=== PATIENT | female | born 1950 | race Caucasian/White ===

== ENCOUNTER → 2018-03-24 12:14 | Outpatient (REF) | payer MEDICARE, SELFPAY ==
[2018-03-24 18:56] LABS: HCT 42.5 % (36.0-46.0); Mean Corp. HGB Concentration 32.9 g/dL (32.0-36.0); Mean Corpuscular Hemoglobin 31.3 pg (27.0-33.0); Mean Corpuscular Volume 95.1 fL (80-95); Mean Platelet Volume 9.9 fL (8.0-11.0); Platelet Count 208 x1000/uL (130-400); RBC 4.47 m/cumm (4.00-5.20); RBC Distribution Width 12.2 % (11.7-14.6); White Blood Cell Count 4.06 k/cumm (4.4-10.8)
[2018-03-24 19:16] LABS: ALT 79 U/L (12-78); AST 56 U/L (15-37); Albumin 4.1 g/dL (3.4-5.0); Alkaline Phosphatase 91 U/L (46-116); Anion Gap 9.2 mmol/L (3-11); BUN 9 mg/dL (7-18); Bilirubin, Total 0.4 mg/dL (0.2-1.0); CO2 27.8 mmol/L (21.0-32.0); CREATININE 0.76 mg/dL (0.55-1.02); Calcium 8.6 mg/dL (8.5-10.1); Chloride 103 mmol/L (98-107); Glucose 81 mg/dL (70-100); Potassium 4.3 mmol/L (3.5-5.1); Sodium 140 mmol/L (136-145); TSH (W/Ref FT4) 0.94 uIU/mL (0.358-3.74); Total Protein 7.4 g/dL (6.4-8.2)
[2018-03-26 21:29] LABS: Iron 107 ug/dL (50-175); Total Iron Binding Capacity 350 ug/dL (250-450); Transferrin Sat 31 % (15-50)
[2018-03-26 21:34] LABS: Ferritin 170 ng/mL (8-388)
[2018-03-28 11:05] LABS: Hep B Core Antibody Negative (NEGAT)
[2018-03-28 11:13] LABS: HBs Antibody, Quant <3.1 mIU/mL; Hepatitis B Surface Ab Negative; Hepatitis B Surface Ag Negative (NEGAT)
== END ==
LOC: NCHCN 12:14
PROVIDERS: PCP Family Medicine; Visit Provider Family Medicine
DX: E03.9 Hypothyroidism, unspecified (principal); K76.0 Fatty (change of) liver, not elsewhere classified; R79.89 Other specified abnormal findings of blood chemistry; M54.5 Low back pain
CPT/HCPCS: 80053; 85027; 86704; 86706; 87340; 82728; 83540; 83550; 84443

== ENCOUNTER 2018-04-23 01:08 | Outpatient (CLI) | payer MEDICARE, SELFPAY ==
--- NOTE | 2018-04-23 07:36 | DI.US_ITS ---
SYMPTOMS/DIAGNOSIS: ELEVATED LFTS, R79.89 ABDOMINAL ULTRASOUND: Routine examination was performed. The aorta and IVC are unremarkable. There is diffuse increased echogenicity of the liver consistent with fatty infiltration. There is normal portal vein flow. No hepatic mass is seen. The gallbladder is negative sonographically. No stones, sludge or gallbladder wall thickening is seen. There is a negative sonographic Kaiser's sign. The common duct is within normal limits at .3 cm. The pancreas, kidneys and spleen are unremarkable. IMPRESSION: Hepatic steatosis. Otherwise negative examination.
== END 2018-04-23 01:28 ==
PROVIDERS: PCP Family Medicine; Visit Provider Family Medicine
DX: R79.89 Other specified abnormal findings of blood chemistry (principal); K76.0 Fatty (change of) liver, not elsewhere classified
CPT/HCPCS: 76700

== ENCOUNTER 2019-03-25 16:03 | Outpatient (REF) | payer MEDICARE, SELFPAY ==
[2019-03-25 19:35] LABS: HCT 44.3 % (36.0-46.0); HGB 14.5 g/dL (12.0-15.5); Mean Corp. HGB Concentration 32.7 g/dL (32.0-36.0); Mean Corpuscular Hemoglobin 30.2 pg (27.0-33.0); Mean Corpuscular Volume 92.3 fL (80-95); Mean Platelet Volume 9.8 fL (8.0-11.0); Platelet Count 218 x1000/uL (130-400); RBC Distribution Width 12.9 % (11.7-14.6); White Blood Cell Count 3.87 k/cumm (4.4-10.8)
[2019-03-25 20:28] LABS: ALT 85 U/L (12-78); AST 61 U/L (15-37); Albumin 3.9 g/dL (3.4-5.0); Alkaline Phosphatase 106 U/L (46-116); Anion Gap 9.1 mmol/L (3-11); BUN 8 mg/dL (7-18); Bilirubin, Total 0.3 mg/dL (0.2-1.0); CO2 28.9 mmol/L (21.0-32.0); CREATININE 0.67 mg/dL (0.55-1.02); Calcium 8.8 mg/dL (8.5-10.1); Chloride 105 mmol/L (98-107); Glucose 95 mg/dL (70-100); Sodium 143 mmol/L (136-145); TSH (W/Ref FT4) 0.42 uIU/mL (0.36-3.74); Total Protein 7.5 g/dL (6.4-8.2)
== END 2019-03-25 16:23 ==
LOC: NCHCN 16:03
PROVIDERS: PCP Family Medicine; Visit Provider Family Medicine
DX: E03.9 Hypothyroidism, unspecified (principal); R60.0 Localized edema
CPT/HCPCS: 80053; 85027; 84443

== ENCOUNTER 2019-03-31 01:39 | Outpatient (CLI) | payer MEDICARE, SELFPAY ==
--- NOTE | 2019-03-31 10:30 | MERGE_ITS ---
*[facility]* *[facility]* [address] [place] [address] Date of study: 03/31/2019 Transthoracic Echocardiography M-mode, complete 2D, complete spectral Doppler, and color Doppler *STUDY CONCLUSIONS* Summary: 1. Left ventricle: The cavity size was normal. Wall thickness was normal. Systolic function was normal. The estimated ejection fraction was 60-65%. Wall motion was normal; there were no regional wall motion abnormalities. Some parameters suggest diastolic dysfunction. 2. Aortic valve: Trileaflet; normal thickness leaflets. There was mild to moderate regurgitation. 3. Right ventricle: The cavity size was normal. Wall thickness was normal. Systolic function was normal. 4. Pulmonary arteries: Pulmonary systolic pressure was within the normal range, in the range of 30mm Hg to 35mm Hg. *PATIENT PRESENTATION* Height: 157.5cm (62in ) S/D Pressure: 116 / 66 Weight: 94.3kg (207.6lb ) BSA: 2.08m^2 Test start time: 10:45 AM. Test stop time: 11:30 AM. CONSULTING Lisa Figueredo ORDERING Lisa Figueredo REFERRING Lisa Figueredo PERFORMING Unknown PERFORMING [facility] RUG LAYER RT Kia Tan)(MARQUITA)MATTHEW *PROCEDURE DATA* Procedure information: This study was interpreted by [facility]. Pertinent images and digital data are archived for permanent storage and are available for subsequent review. No prior study was available for comparison. Study status: Routine. Transthoracic echocardiography. M-mode, complete 2D, complete spectral Doppler, and color Doppler. A Transthoracic Echocardiogram was performed. Scanning was performed from the parasternal, apical, subcostal, and suprasternal notch acoustic windows. Images were obtained using an [id number] cardiac ultrasound machine. Image quality was adequate. Study completion: The patient tolerated the procedure well. There were no complications. History: PMH: Leg edema r60.0 DAVILA, no orthopnea. New onset. *CARDIAC ANATOMY* Left ventricle: The cavity size was normal. Wall thickness was normal. Systolic function was normal. The estimated ejection fraction was 60-65%. Wall motion was normal; there were no regional wall motion abnormalities. Some parameters suggest diastolic dysfunction. Aortic valve: Trileaflet; normal thickness leaflets. Mobility was not restricted. Doppler: Transvalvular velocity was within the normal range. There was no stenosis. There was mild to moderate regurgitation. VTI ratio of LVOT to aortic valve: 0.76. Valve area (VTI): 2.1cm^2. Indexed valve area (VTI): 1cm^2/m^2. Peak velocity ratio of LVOT to aortic valve: 0.86. Valve area (Vmax): 2.4cm^2. Indexed valve area (Vmax): 1.2cm^2/m^2. Mean velocity ratio of LVOT to aortic valve: 0.73. Valve area (Vmean): 2cm^2. Indexed valve area (Vmean): 1cm^2/m^2. Mean gradient (S): 5.7mm Hg. Peak gradient (S): 11.5mm Hg. Aorta: Aortic root: The aortic root was normal in size. Mitral valve: Structurally normal valve. Mobility was not restricted. Doppler: Transvalvular velocity was within the normal range. There was no evidence for stenosis. There was trivial regurgitation. Valve area by pressure half-time: 2.9cm^2. Indexed valve area by pressure half-time: 1.4cm^2/m^2. Left atrium: The atrium was normal in size. Right ventricle: The cavity size was normal. Wall thickness was normal. Systolic function was normal. Pulmonic valve: Doppler: Transvalvular velocity was within the normal range. There was no evidence for stenosis. There was no significant regurgitation. Peak gradient (S): 3.1mm Hg. Tricuspid valve: Structurally normal valve. Doppler: Transvalvular velocity was within the normal range. There was no evidence for stenosis. There was mild regurgitation. Pulmonary artery: Pulmonary systolic pressure was within the normal range, in the range of 30mm Hg to 35mm Hg. Right atrium: The atrium was normal in size. Pericardium: There was no pericardial effusion. Systemic veins: Inferior vena cava: Well visualized. The vessel was patent and normal in size. The respirophasic diameter changes were in the normal range (greater than or equal to 50%). Baseline ECG: Normal sinus rhythm. Measurements Left ventricle Value Reference LV ID, ED, PLAX 4.1 cm 3.5 - 6.0 LV ID, ES, PLAX 2.7 cm 2.1 - 4.0 LV PW thickness, ED, PLAX 1.0 cm LV end-diastolic volume, 1-p A2C 66 ml LV ejection fraction, 1-p A2C 53 % LV end-diastolic volume, 1-p A4C 79 ml LV ejection fraction, 1-p A4C 67 % LV e', lateral 0.088 m/sec LV E/e', lateral 5 LV e', medial 0.068 m/sec LV E/e', medial 7 LV e', average 0.078 m/sec LV E/e', average 6 Ventricular septum Value Reference IVS thickness, ED, PLAX 1.0 cm LVOT Value Reference LVOT ID, A-P 1.9 cm LVOT area 2.8 cm^2 LVOT peak velocity, S 1.45 m/sec LVOT mean velocity, S 0.83 m/sec LVOT VTI, S 28.9 cm LVOT peak gradient, S 8.4 mm Hg LVOT mean gradient, S 3.5 mm Hg Stroke volume (SV), LVOT DP 81 ml Stroke index (SV/bsa), LVOT DP 39 ml/m^2 Aortic valve Value Reference Aortic valve peak velocity, S 1.7 m/sec Aortic valve mean velocity, S 1.1 m/sec Aortic valve VTI, S 38.0 cm Aortic mean gradient, S 5.7 mm Hg Aortic peak gradient, S 11.5 mm Hg VTI ratio, LVOT/AV 0.76 Aortic valve area, VTI 2.1 cm^2 Velocity ratio, peak, LVOT/AV 0.86 Aortic valve area, peak velocity 2.4 cm^2 Velocity ratio, mean, LVOT/AV 0.73 Aortic valve area, mean velocity 2 cm^2 Aortic valve area/bsa, mean velocity 1 cm^2/m^2 Aortic regurg deceleration 427 cm/s^2 Aortic regurg pressure half-time 313 ms Aorta Value Reference Aortic root ID, ED 2.8 cm Ascending aorta ID, A-P, S 3.5 cm Left atrium Value Reference LA ID, A-P, ES 3.8 cm LA ID/bsa, A-P 1.8 cm/m^2 <=2.2 LA volume/bsa, ES, 1-p A4C 41 ml/m^2 LA volume, ES, 2-p 64 ml LA volume/bsa, ES, 2-p 31 ml/m^2 LA/aortic root ratio 1.34 Mitral valve Value Reference Mitral E-wave peak velocity 0.48 m/sec Mitral A-wave peak velocity 0.87 m/sec Mitral deceleration time (H) 258 ms 150 - 230 Mitral pressure half-time 75 ms Mitral E/A ratio, peak 0.55 Mitral valve area, PHT, DP 2.9 cm^2 Tricuspid valve Value Reference Tricuspid regurg peak velocity 2.5 m/sec Tricuspid peak RV-RA gradient 25.4 mm Hg Right atrium Value Reference RA area, ES, A4C 13.9 cm^2 8.3 - 19.5 Pulmonic valve Value Reference Pulmonic peak gradient, S 3.1 mm Hg Legend: (L) and (H) edmundo values outside specified reference range. I have personally reviewed the images and have reviewed and edited the reported findings. Electronically signed by Cornel Reynolds 03/31/2019 12:17
== END 2019-03-31 01:59 ==
PROVIDERS: PCP Family Medicine; Visit Provider Family Medicine
DX: R06.09 Other forms of dyspnea (principal); R60.0 Localized edema; I35.1 Nonrheumatic aortic (valve) insufficiency
CPT/HCPCS: 93306

== ENCOUNTER 2019-04-17 20:45 | Outpatient (REF) | payer MEDICARE, SELFPAY ==
[2019-04-17 19:02] LABS: Anion Gap 10.5 mmol/L (3-11); BUN 10 mg/dL (7-18); CO2 26.5 mmol/L (21.0-32.0); CREATININE 0.63 mg/dL (0.55-1.02); Calcium 8.6 mg/dL (8.5-10.1); Chloride 105 mmol/L (98-107); Glucose 82 mg/dL (70-100); Sodium 142 mmol/L (136-145)
== END 2019-04-17 21:05 ==
LOC: NCHCN 20:45
PROVIDERS: PCP Family Medicine; Visit Provider Family Medicine
DX: R60.0 Localized edema (principal)
CPT/HCPCS: 80048

== ENCOUNTER 2019-05-19 00:46 | Outpatient (CLI) | payer MEDICARE, SELFPAY ==
--- NOTE | 2019-05-19 15:59 | DI.DEXA_ITS ---
EXAM: XR DEXA BONE DENSITY W/WO MANUEL INDICATION: POSTMENOPAUSAL Z78.0. COMPARISON: LUMBAR SPINE COMPLETE from 12/13/2014 TECHNIQUE: 2D digital imaging was performed. FINDINGS: The lateral spine film shows no evidence of compression deformity. Evaluation of the left hip shows a total T-score of -1.7 and a Z-score of -0.4. This is consistent w ith osteopenia and increased fracture risk. Evaluation of the lumbar spine shows a total T-score of -2.6 and a Z-score of -0.7. This is consiste nt with osteoporosis and high fracture risk. IMPRESSION: Osteoporosis in the lumbar spine.
--- NOTE | 2019-05-19 16:39 | DI.MAMMO_ITS ---
EXAM: MG MAMMO SCREENING CLINICAL HISTORY: SCREENING Z12.31. TECHNIQUE: Bilateral full field digital CC and MLO mammographic images were obtained with 3D tomosyn thesis and utilizing computer aided detection (CAD). COMPARISON: There are multiple priors with the most recent from 01/21/2017. FINDINGS: Masses/Architectural Distortion: None seen. Microcalcifications: No suspicious pleomorphic-type are seen. IMPRESSION: 1. No significant interval change with no specific features of malignancy noted. 2. Unless there is more urgent need, screening mammography is recommended, as per [employer] guidelines. ACR BI-RAD Category- 1 Negative Breast Density - Category B - Scattered areas of fibroglandular density A negative radiographic report should not delay biopsy if a dominant or clinically suspicious mass is present. Up to ten percent of cancers are not identified on mammography. A negative report may reinforce clinical impression. Adenosis and dense breasts may obscure an underlying neoplasm. False positive reports average 6 to 10%.
== END 2019-05-19 01:06 ==
PROVIDERS: PCP Family Medicine; Visit Provider Family Medicine
DX: Z12.31 Encounter for screening mammogram for malignant neoplasm of breast (principal); M81.0 Age-related osteoporosis without current pathological fracture; Z78.0 Asymptomatic menopausal state
CPT/HCPCS: 77063; 77067; 77080

== ENCOUNTER 2019-05-22 11:49 | Outpatient (CLI) | payer MEDICARE, SELFPAY ==
[2019-05-22 13:11] LABS: PHOSPHORUS 3.5 mg/dL (2.6-4.7)
[2019-05-25 07:33] LABS: Vitamin D 25 Total 15.4 ng/ml (30-100)
[2019-05-25 10:34] LABS: Parathyroid Hormone,Intact 87 pg/ml (19-88)
[2019-05-26 12:37] LABS: IgA 328 mg/dL (85-499)
[2019-05-26 17:43] LABS: Tissue Transglutaminase Ab IgA <1.2 U/mL
== END 2019-05-22 12:09 ==
PROVIDERS: PCP Family Medicine; Visit Provider Family Medicine
DX: M81.0 Age-related osteoporosis without current pathological fracture (principal); E55.9 Vitamin D deficiency, unspecified
CPT/HCPCS: 36415; 82306; 82784; 83516; 83970; 84100

== ENCOUNTER 2019-08-27 08:18 | Outpatient (CLI) | payer MEDICARE, SELFPAY ==
[2019-08-27 09:13] LABS: Abs Immature Grans 0.01 k/cumm (0.0-0.09); Absolute Basophil Count 0.03 k/cumm (0.0-0.2); Absolute Eosinophil Count 0.13 k/cumm (0.0-0.7); Absolute Lymphocyte Count 1.47 k/cumm (1.2-3.4); Absolute Monocyte Count 0.27 k/cumm (0.11-0.7); Absolute Neutrophil Count 1.61 k/cumm (1.2-6.7); Basophils % 0.9; Eosinophils % 3.7; HCT 43.3 % (36.0-46.0); HGB 13.8 g/dL (12.0-15.5); Immature Grans % 0.3 %; Lymphocytes % 41.8; Mean Corp. HGB Concentration 31.9 g/dL (32.0-36.0); Mean Corpuscular Hemoglobin 29.8 pg (27.0-33.0); Mean Corpuscular Volume 93.5 fL (80-95); Monocytes % 7.7; Neutrophils % 45.6; Platelet Count 206 x1000/uL (130-400); RBC 4.63 m/cumm (4.00-5.20); RBC Distribution Width 12.7 % (11.7-14.6); White Blood Cell Count 3.52 k/cumm (4.4-10.8)
[2019-08-27 09:18] LABS: ALT 44 U/L (14-59); AST 29 U/L (15-37); Albumin 3.6 g/dL (3.4-5.0); Alkaline Phosphatase 103 U/L (46-116); Anion Gap 8.3 mmol/L (3-11); BUN 11 mg/dL (7-18); Bilirubin, Total 0.3 mg/dL (0.2-1.0); CO2 30.7 mmol/L (21.0-32.0); CREATININE 0.61 mg/dL (0.55-1.02); Calcium 9.1 mg/dL (8.5-10.1); Chloride 104 mmol/L (98-107); Glucose 87 mg/dL (74-106); Sodium 143 mmol/L (136-145); TSH (W/Ref FT4) 0.35 uIU/mL (0.36-3.74); Total Protein 7.8 g/dL (6.4-8.2)
[2019-08-27 09:53] LABS: FREE T4 1.31 ng/dL (0.76-1.46)
[2019-08-27 22:43] LABS: Vitamin D 25 Total 74.2 ng/ml (30-100)
== END 2019-08-27 08:38 ==
PROVIDERS: PCP Family Medicine; Visit Provider Family Medicine
DX: E55.9 Vitamin D deficiency, unspecified (principal); E03.9 Hypothyroidism, unspecified
CPT/HCPCS: 36415; 80053; 82306; 84439; 84443; 85025

== ENCOUNTER 2020-02-16 08:25 | Outpatient (REF) | payer MEDICARE, SELFPAY ==
[2020-02-16 10:03] LABS: Anion Gap 7.3 mmol/L (3-11); BUN 11 mg/dL (7-18); CO2 29.7 mmol/L (21.0-32.0); CREATININE 0.71 mg/dL (0.55-1.02); Chloride 103 mmol/L (98-107); Glucose 83 mg/dL (74-106); Potassium 3.7 mmol/L (3.5-5.1); Sodium 140 mmol/L (136-145); TSH (W/Ref FT4) 1.81 uIU/mL (0.36-3.74)
[2020-02-18 04:27] LABS: Vitamin D 25 Total 48.2 ng/ml (30-100)
== END 2020-02-16 08:45 ==
LOC: NCHCN 08:25
PROVIDERS: PCP Family Medicine; Visit Provider Family Medicine
DX: E55.9 Vitamin D deficiency, unspecified (principal); E03.9 Hypothyroidism, unspecified; M81.0 Age-related osteoporosis without current pathological fracture
CPT/HCPCS: 80048; 82306; 84443

== ENCOUNTER 2020-05-20 11:52 | Outpatient (REF) | payer MEDICARE, SELFPAY ==
[2020-05-20 19:25] LABS: Anion Gap 7.2 mmol/L (3-11); BUN 9 mg/dL (7-18); CO2 27.8 mmol/L (21.0-32.0); CREATININE 0.72 mg/dL (0.55-1.02); Calcium 8.9 mg/dL (8.5-10.1); Chloride 103 mmol/L (98-107); Glucose 77 mg/dL (74-106); Sodium 138 mmol/L (136-145)
[2020-05-20 20:23] LABS: Hemoglobin A1C 5.4 % (<5.7)
== END 2020-05-20 12:12 ==
LOC: NCHCN 11:52
PROVIDERS: PCP Family Medicine; Visit Provider Family Medicine
DX: R73.09 Other abnormal glucose (principal); R60.0 Localized edema
CPT/HCPCS: 80048; 83036

== ENCOUNTER 2020-05-26 00:32 | Outpatient (CLI) | payer MEDICARE, SELFPAY ==
--- NOTE | 2020-05-26 | DI.US_ITS ---
APPROVED REPORT EXAM: Comprehensive 2D, Doppler, and color-flow Echocardiogram Patient Location: Out-Patient Organizational Psychologist: Leigh Nayak RDCS (AE) Indications: DAVILA, Leg Edema Other Information Study Quality: Fair Conclusion Left Ventricle : The left ventricle is normal size. The left ventricular systolic function is normal. The left ventricular ejection fraction is within the normal range. There is normal left ventricular wall thickness. There is normal LV segmental wall motion. The left ventricular diastolic function is normal. LVEF is 53%. Right Ventricle : Right ventricle is not well visualized. The right ventricular systolic function is normal. The RVSP is 23.6 mmHg. Atria : The left atrium size is normal. Right atrium is not well visualized. Valves: There are no hemodynamically significant valvular lesions. Great Vessels : The aortic root is normal in size. The ascending aorta is mildly dilated. Aortic arch is not well visualized. IVC is normal in size and collapses >50% with inspiration. Please see remainder of study for further details. Wall motion Left Ventricle The left ventricle is normal size. The left ventricular systolic function is normal. The left ventric ular ejection fraction is within the normal range. There is normal left ventricular wall thickness. T here is normal LV segmental wall motion. The left ventricular diastolic function is normal. There is no ventricular septal defect visualized. LVEF is 53%. Right Ventricle Right ventricle is not well visualized. The right ventricular systolic function is normal. The RVSP i s 23.6 mmHg. Atria The left atrium size is normal. Right atrium is not well visualized. The interatrial septum is intact with no evidence for an atrial septal defect. Aortic Valve The aortic valve is normal in structure. There is no aortic valvular stenosis. Mild aortic regurgitat ion. Mitral Valve The mitral valve is normal in structure. No evidence of mitral valve stenosis. Trace mitral regurgita tion. Tricuspid Valve The tricuspid valve is normal in structure. There is no tricuspid valve stenosis. Trace tricuspid reg urgitation. Pulmonic Valve The pulmonary valve is normal in structure. There is no pulmonic valvular stenosis. Trace pulmonic re gurgitation. Great Vessels The aortic root is normal in size. The ascending aorta is mildly dilated. Aortic arch is not well vis ualized. IVC is normal in size and collapses >50% with inspiration. Pericardium There is no pericardial effusion. 2D Dimensions IVSD d PLAX 0.83 cm F: 0.6-1.0 LV Vol A2C d MOD 69.1 mL LVPW d PLAX 0.80 cm F: 0.6 - 1.0 LV Vol A4C d MOD 70.0 mL LVID d PLAX 4.49 cm F: 3.8 - 5.2 LA vol/ BSA A2C s A-L 23.9 mL/m2 LVDs 3.30 cm F: 2.2 - 3.5 LA vol/ BSA A4C s A-L 12.4 mL/m2 Ao Root d 2.89 cm F: 2.7 - 3.3 LA Vol/ BSA Biplane s A-L 18.3 mL/m2 RA Area A4C 10.08 cm2 LA Area A4C s MOD 10.74 cm2 RA Vol/ BSA A4C s A-L 11.1 mL/m2 LA Area A2C s MOD 15.93 cm2 Ao Asc Diam d 3.40 cm F: 2.3 - 3.1 LV EF A4C MOD 53.3 % LV EF Teichholz 51.0 % LV EF A2C MOD 51.4 % LVEF (Mathias's) 52.08 % F: 54 - 74 LV EF Biplane MOD 52.1 % LV Volume 54.14 mL F: 46 - 106 SV 36.91 mL LV Volume Index 28.64 mL/m2 F: 29 - 61 SV Index 19.48 mL/m2 LV Vol Biplane MOD 70.9 mL FS 25.85 % LV Diastology MV E' medial 0.067 (>0.07 m/s) E/A Ratio 0.8 LV E/e MED 7.75 (<14) MV E Vmax 0.52 (0.4-1.3 m/s) MV E' lateral 0.078 (>0.1 m/s) MV A Vmax 0.65 (0.4-1.3 m/s) LV E/e LAT 6.65 (<14) MV E/A Ratio 0.75 MV E/E' medial 7.75 MV E/E' lateral 6.69 Aortic Valve LVOT Area 2.88 cm2 AoV Area Vmax 2.29 cm2 LVOT Vmax 1.26 m/s AoV Area/ BSA (Vmax) 1.21 cm2/m2 LVOT Mean Patel. 0.79 m/s ADELAIDA Mean Patel. 2.04 cm2 LVOT Peak Grad 6.3 mmHg ADELAIDA Mean Patel. Index 1.07 cm2/m2 LVOT Mean Grad 3.0 mmHg AR DT 2860 msec LVOT VTI 0.289 m AR PHT 829 msec LVOT Diam s 1.90 cm AoV Vmax 1.58 m/s Velocity Ratio 0.79 AoV Mean Patel. 1.12 m/s AoV Peak Grad 10.0 mmHg LVOT SV 83.38 mL AoV Mean Grad 5.6 mmHg AoV VTI 0.297 m AoV Area VTI 2.81 cm2 AoV Area/ BSA (VTI) 1.48 cm/m2 Mitral Valve MV DT 224 (160-240 msec) MV PHT 65 msec MV Area PHT 3.39 cm2 Pulmonary Valve PV Vmax 0.95 (0.5-1.5 m/s) RVOT Peak Gr. 2.49 mmHg PV Peak Grad 3.6 mmHg RVOT Mean Gr. 1.20 mmHg PV Mean Grad 1.8 mmHg RVOT VTI 0.181 m PV VTI 0.198 m RVOT Vmax 0.79 m/s Tricuspid Valve TR Peak Grad 20.5 mmHg TR Vmax 2.27 m/s RA Pressure 3.00 mmHg RVSP (TR) 23.6 mmHg
== END 2020-05-26 00:52 ==
PROVIDERS: PCP Family Medicine; Visit Provider Family Medicine
DX: R06.09 Other forms of dyspnea (principal); I77.810 Thoracic aortic ectasia
CPT/HCPCS: 93306

== ENCOUNTER 2020-12-16 09:44 | Outpatient (REF) | payer MEDICARE, SELFPAY ==
[2020-12-16 15:27] LABS: HCT 42.4 % (36.0-46.0); HGB 13.9 g/dL (11.2-15.7); MCH 30.8 pg (27.0-33.0); MCHC 32.8 % (32.0-36.0); MPV 9.1 fL (8.0-11.0); Platelet Count 219 10^3/uL (130-400); RBC 4.51 10^6/uL (3.93-5.22); RDW 11.9 % (11.7-14.6); RDW-SD 41.4 fL
[2020-12-16 15:51] LABS: Calculated LDL 124 mg/dL (<100); Cholesterol 202 mg/dL (<200); HDL Cholesterol 49 mg/dL (40-60); Triglyceride 145 mg/dL (<150)
== END 2020-12-16 09:45 | disposition home or self-care (01) ==
LOC: NCHCN 09:44
PROVIDERS: PCP Family Medicine; Visit Provider Family Medicine
DX: E78.89 Other lipoprotein metabolism disorders (principal); Z00.00 Encounter for general adult medical examination without abnormal findings; D72.819 Decreased white blood cell count, unspecified
CPT/HCPCS: 80061; 85027

== ENCOUNTER 2021-06-09 11:51 | Outpatient (REF) | payer MEDICARE, SELFPAY ==
[2021-06-09 14:09] LABS: HCT 41.4 % (36.0-46.0); HGB 13.7 g/dL (11.2-15.7); MCH 30.2 pg (27.0-33.0); MCHC 33.1 % (32.0-36.0); MCV 91.2 fL (80-95); MPV 9.3 fL (8.0-11.0); Platelet Count 222 10^3/uL (130-400); RBC 4.54 10^6/uL (3.93-5.22); RDW 12.1 % (11.7-14.6); RDW-SD 40.6 fL; WBC 3.67 10^3/uL (4.4-10.8)
[2021-06-09 14:27] LABS: ALT 40 U/L (14-59); AST 31 U/L (15-37); Albumin 4.1 g/dL (3.4-5.0); Alkaline Phosphatase 66 U/L (46-116); BUN 12 mg/dL (7-18); Bilirubin, Total 0.5 mg/dL (0.2-1.0); CREATININE 0.8 mg/dL (0.55-1.02); Chloride 103 mmol/L (98-107); Glucose 91 mg/dL (74-106); Potassium 4.3 mmol/L (3.5-5.1); Sodium 140 mmol/L (136-145); TSH (W/Ref FT4) 2.01 uIU/mL (0.36-3.74); Total Protein 7.8 g/dL (6.4-8.2)
== END 2021-06-09 11:52 | disposition home or self-care (01) ==
LOC: NCHCN 11:51
PROVIDERS: PCP Family Medicine; Visit Provider Family Medicine
DX: E03.9 Hypothyroidism, unspecified (principal); K76.0 Fatty (change of) liver, not elsewhere classified
CPT/HCPCS: 80053; 85027; 84443

== ENCOUNTER 2021-07-12 01:55 | Outpatient (CLI) | payer MEDICARE, SELFPAY ==
--- NOTE | 2021-07-12 07:30 | DI.MAMMO_ITS ---
Exam(s) MAMMO SCREENING EXAM: MAMMO SCREENING CLINICAL HISTORY: SCREENING MAMMO FOR BREAST CANCER Z12.31 TECHNIQUE: Mammograms were interpreted according to the usual protocol including computer analysis w [facility] CAD system, tomosynthesis and C-view imaging. COMPARISON: FINDINGS: The breasts are of moderate density with fairly symmetrical distribution of fibroglandular tissue. N o dominant mass or clumped microcalcification is identified in either breast. The current examinatio n compared with previous examinations including May 2019 and there has been no gross interval renita nge in appearance in comparison with the prior studies. IMPRESSION: No specific evidence of malignancy at this time. Routine screening examinations are suggested at yea rly intervals due to the family history of breast carcinoma. BI-RADS Category 1 - Negative Breast Density - Category B - Scattered areas of fibroglandular density
== END 2021-07-12 02:15 ==
PROVIDERS: PCP Family Medicine; Visit Provider Family Medicine
DX: Z12.31 Encounter for screening mammogram for malignant neoplasm of breast (principal)
CPT/HCPCS: 77063; 77067

== ENCOUNTER 2022-01-12 09:55 | Outpatient (REF) | payer MEDICARE, SELFPAY ==
--- NOTE | 2022-01-12 09:30 | SKI_PTH ---
PATIENT: Maritza Lemus LOC: N U#:[id number] AGE/SX: 71/F ROOM: RE01/12/[address]: LE Pruitt : 1950 BED: DIS: 01/12/2022 SPEC #: [id number] RECD: 01/12/22 15:47 STATUS: DARCIE REQ #: [id number] KIM: 01/12/22 09:[address]: Primo Guerra DEPT: Surgical Specimen RECD BY: Sanyd Jimenez ENTERED: 01/12/22 15:48 SP TYPE: NUSRAT STEWART DR: Lisa Figueredo Tissues: 1 - SKIN BIOPSY(SHAVE/PUNCH) Procedures: SKIN LEVEL 4 Comments: [id number]
== END 2022-01-12 09:56 | disposition home or self-care (01) ==
LOC: LBN 09:55
PROVIDERS: PCP Family Medicine; Visit Provider Physician Assistant
DX: D22.61 Melanocytic nevi of right upper limb, including shoulder (principal); L81.4 Other melanin hyperpigmentation
CPT/HCPCS: 88305

== ENCOUNTER 2022-07-16 17:30 | Outpatient (REF) | payer MEDICARE, SELFPAY ==
[2022-07-16 18:35] LABS: HCT 42.3 % (36.0-46.0); HGB 14.1 g/dL (11.2-15.7); MCH 30.3 pg (27.0-33.0); MCHC 33.3 % (32.0-36.0); MCV 91 fL (80-95); Platelet Count 222 10^3/uL (130-400); RBC 4.65 10^6/uL (3.93-5.22); RDW 12.4 % (11.7-14.6)
[2022-07-16 19:00] LABS: ALT 60 U/L (14-59); AST 38 U/L (15-37); Albumin 3.9 g/dL (3.4-5.0); Alkaline Phosphatase 64 U/L (46-116); Anion Gap 7.6 mmol/L (3-11); BUN 16 mg/dL (7-18); Bilirubin, Total 0.5 mg/dL (0.2-1.0); CO2 29.4 mmol/L (21.0-32.0); CREATININE 0.9 mg/dL (0.55-1.02); Calcium 9.3 mg/dL (8.5-10.1); Chloride 101 mmol/L (98-107); Estimated GFR 68.77 (mL/min/1.73m2); Glucose 78 mg/dL (74-106); Potassium 3.9 mmol/L (3.5-5.1); Sodium 138 mmol/L (136-145); TSH (W/Ref FT4) 1.71 uIU/mL (0.36-3.74); Total Protein 7.7 g/dL (6.4-8.2)
== END 2022-07-16 17:31 | disposition home or self-care (01) ==
LOC: NCHCN 17:30
PROVIDERS: PCP Family Medicine; Visit Provider Family Medicine
DX: E03.9 Hypothyroidism, unspecified (principal); K76.0 Fatty (change of) liver, not elsewhere classified
CPT/HCPCS: 80053; 85027; 84443

== ENCOUNTER 2022-08-21 14:02 | Outpatient (REF) | payer MEDICARE, SELFPAY ==
[2022-08-21 20:25] LABS: BUN 19 mg/dL (7-18); CREATININE 0.9 mg/dL (0.55-1.02); Calcium 9.6 mg/dL (8.5-10.1); Glucose 90 mg/dL (74-106)
[2022-08-21 20:26] LABS: Anion Gap 7.3 mmol/L (3-11); CO2 29.7 mmol/L (21.0-32.0); Chloride 99 mmol/L (98-107); Estimated GFR 68.77 (mL/min/1.73m2); Potassium 4.3 mmol/L (3.5-5.1); Sodium 136 mmol/L (136-145)
[2022-08-21 21:40] LABS: Hemoglobin A1C 5.5 % (<5.7)
== END 2022-08-21 14:03 | disposition home or self-care (01) ==
LOC: NCHCN 14:02
PROVIDERS: PCP Family Medicine; Visit Provider Family Medicine
DX: E03.9 Hypothyroidism, unspecified (principal); K76.0 Fatty (change of) liver, not elsewhere classified; R60.0 Localized edema
CPT/HCPCS: 80048; 83036

== ENCOUNTER 2023-02-01 00:13 | Outpatient (CLI) | payer MEDICARE, SELFPAY ==
--- NOTE | 2023-02-01 | DI.DEXA_ITS ---
Exam(s) XR DEXA BONE DENSITY W/WO MANUEL EXAM: XR DEXA BONE DENSITY W/WO MANUEL CLINICAL HISTORY: OSTEOPOROSIS SPINE M81.0 TECHNIQUE: Routine DEXA evaluation of the lumbar spine, hip, or forearm. COMPARISON: Prior DEXA scan May 2019 FINDINGS: Performed on a Holo[employer] unit. Lateral image: No compression fracture evident. Lumbar Spine total T-score: -1.2. Previous reading in 2019 was -2.6 Hip total T-score:-1.4. Previous reading in 2019 was -1.7 Independent reading at the level of the femoral neck yields T-score of -1.8 IMPRESSION: Bone mineral density measures in the osteopenia range. Fracture risk is moderate. Note: Any spine fracture indicates 5x risk for subsequent spine fracture and 2x risk for subsequent h ip fracture. World Health Organization criteria for BMD interpretation classify patients: Normal...... T- Score at or above -1.0 Osteopenic... T- Score between -1.0 and -2.5 Osteoporosis... T-Score at or below -2.5
--- NOTE | 2023-02-01 | DI.MAMMO_ITS ---
Exam(s) MAMMO SCREENING EXAM: MAMMO SCREENING CLINICAL HISTORY: SCREENING MAMMO FOR BREAST CANCER Z12.31. TECHNIQUE: Bilateral full field digital CC and MLO mammographic images were obtained with 3D tomosyn thesis and utilizing computer aided detection (CAD). COMPARISON: Prior mammograms were reviewed. FINDINGS: There has been no significant change in the appearance and distribution of the fibroglandular tissue. Asymmetric density in the medial aspect of the left breast is unchanged prior studies. Benign-appear ing microcalcification group the left breast also remains stable. There are no new spiculated masses nor malignant appearing microcalcification groups. There is no significant architectural distortion nor skin thickening-retraction. IMPRESSION: No radiographic evidence of malignancy. Stable benign-appearing findings. BI-RADS Category 2 - Benign Findings Breast Density - Category B - Scattered areas of fibroglandular density Breast density Category C or D implies that the patient has dense breast tissue. Dense breast tissue can make it harder to find cancer on a mammogram. Dense breast tissue is also associated with an incr eased risk of breast cancer. This information about the result of the mammogram report was provided to the patient to raise their awareness. Use this report when you speak with the patient about their risks for breast cancer, which includes their family history. At that time, you may recommend additional screening tests (Ultrasoun d or MRI) as these tests may add significant information. A negative radiographic report should not delay biopsy if a dominant or clinically suspicious mass is present. Up to ten percent of cancers are not identified on mammography. A negative report may reinforce clinical impression. Adenosis and dense breasts may obscure an underlying neoplasm. False positive reports average 6 to 10%. Patient will receive a letter notifying them of these results.
== END 2023-02-01 00:33 ==
PROVIDERS: PCP Family Medicine; Visit Provider Family Medicine
DX: M81.0 Age-related osteoporosis without current pathological fracture (principal); Z12.31 Encounter for screening mammogram for malignant neoplasm of breast
CPT/HCPCS: 77063; 77067; 77080

== ENCOUNTER 2024-08-21 14:00 | Outpatient (REF) | payer MEDICARE, SELFPAY ==
[2024-08-21 15:33] LABS: HCT 42.6 % (36.0-46.0); HGB 13.7 g/dL (11.2-15.7); MCH 30.2 pg (27.0-33.0); MCHC 32.2 % (32.0-36.0); MCV 94 fL (80-95); MPV 9.7 fL (8.0-11.0); Platelet Count 200 10^3/uL (130-400); RBC 4.53 10^6/uL (3.93-5.22); RDW 12.4 % (11.7-14.6); WBC 4.23 10^3/uL (4.4-10.8)
[2024-08-21 17:07] LABS: ALT 70 U/L (14-59); AST 45 U/L (15-37); Alkaline Phosphatase 68 U/L (46-116); Anion Gap 5.8 mmol/L (3-11); BUN 17 mg/dL (7-18); Bilirubin, Total 0.53 mg/dL (0.2-1.0); CO2 32.2 mmol/L (21.0-32.0); Calcium 9.4 mg/dL (8.5-10.1); Chloride 104 mmol/L (98-107); Estimated GFR 59.86 (mL/min/1.73m2); Glucose 103 mg/dL (74-106); Sodium 142 mmol/L (136-145); TSH (W/Ref FT4) 1.66 uIU/mL (0.36-3.74); Total Protein 7.4 g/dL (6.4-8.2); Vitamin D 25 Total 87.9 ng/mL (30-100)
[2024-08-21 17:32] LABS: NT-proBNP 118 pg/mL (<300)
== END 2024-08-21 14:01 | disposition home or self-care (01) ==
LOC: NCHCN 14:00
PROVIDERS: PCP Family Medicine; Visit Provider Family Medicine
DX: E03.9 Hypothyroidism, unspecified (principal); E55.9 Vitamin D deficiency, unspecified; K76.0 Fatty (change of) liver, not elsewhere classified
CPT/HCPCS: 80053; 82306; 85027; 83880; 84443

== ENCOUNTER 2024-09-14 01:53 | Outpatient (CLI) | payer MEDICARE, SELFPAY ==
--- NOTE | 2024-09-14 08:15 | DI.MAMMO_ITS ---
Exam(s) MAMMO SCREENING EXAM: MAMMO SCREENING CLINICAL HISTORY: SCREENING MAMMO Z12.31 TECHNIQUE: Bilateral full field digital CC and MLO mammographic images were obtained with 3D tomosyn thesis and utilizing computer aided detection (CAD). COMPARISON: Available for comparison. FINDINGS: Masses/Architectural Distortion: None seen. Microcalcifications: No suspicious pleomorphic-type are seen. Skin Thickening/Nipple Retraction: None. IMPRESSION: 1. No significant interval change with no specific features of malignancy noted. 2. Unless there is more urgent need, screening mammography is recommended, as per [employer] guidelines. BI-RADS Category 1 - Negative Breast Density - Category B - Scattered areas of fibroglandular density Breast density category C or D implies that the patient has dense breast tissue. Dense breast tissue is very common and is not abnormal but dense breast tissue can make it harder to find cancer on a ma mmogram. Also, dense breast tissue may increase their breast cancer risk. This information about the result of the mammogram report was provided to the patient to raise their awareness. Use this report when you speak with the patient about their risks for breast cancer, which includes their family hist ory. At that time, you may recommend for more screening tests (Ultrasound or MRI) as they might be us eful based on their risk. A negative radiographic report should not delay biopsy if a dominant or clinically suspicious mass is present. Up to ten percent of cancers are not identified on mammography. A negative report may reinforce clinical impression. Adenosis and dense breasts may obscure an underlying neoplasm. False positive reports average 6 to 10%. Patient will receive a letter notifying them of these results.
== END 2024-09-14 02:13 ==
PROVIDERS: PCP Family Medicine; Visit Provider Family Medicine
DX: Z12.31 Encounter for screening mammogram for malignant neoplasm of breast (principal); R92.323 Mammographic fibroglandular density, bilateral breasts
CPT/HCPCS: 77063; 77067

== ENCOUNTER → 2024-11-09 09:23 | Outpatient (BNVA) | payer MEDICARE, SELFPAY | PROVIDERS: PCP Family Medicine; Referring Provider Family Medicine; Visit Provider Student in an Organized Health Care Education/Training Program | DX: Z12.11 Encounter for screening for malignant neoplasm of colon (principal); Z86.0102 Personal history of hyperplastic colon polyps ==

== ENCOUNTER 2024-12-14 06:38 | Day surgery (SDC) | payer MEDICARE, SELFPAY ==
--- NOTE | 2024-12-13 09:41 | W.PREOPHP ---
Assessment and Plan Assessment and plan (1) Encounter for screening colonoscopy: Status: Acute Assessment and plan: We reviewed the role of screening colonoscopy as part of routine health care, and I explained the risks and benefits of the procedure. She is able to provide informed consent today, and we can proceed with colonoscopy as planned History of Present Illness History of Present Illness Chief Complaint: screening colonoscopy Narrative: 73-year-old woman is due for her next colonoscopy. Her last 1 was more than 10 years ago. Reportedly had some hyperplastic polyps. There is no family history of colon cancer. She does note that she occasionally will see a streak of blood in the toilet but assumes is from hemorrhoids. She has had relatively extensive pelvic surgery she has had multiple procedures on her ovaries. She has had a cystocele and rectocele repair. PFSH All Active Problems Encounter for screening colonoscopy (Acute) Atypical nevus (Acute) Medical History Obesity Irritable bowel Mitral valve prolapse GERD (gastroesophageal reflux disease) Hypothyroidism Colon polyp Rhinitis, allergic Fatty liver Chronic pain Surgical History Ligation of fallopian tube Rectocele, Paravaginal repair Oophrectomy, Both Cystocele, Paravaginal repair Colonoscopy - IV Sedation Social History Smoking/Tobacco Use Status: Never Smoking risk assessment performed?: Yes Alcohol Intake: current Alcohol Intake frequency: holidays/special occasions only Drug use: Never Housing: house Do you feel safe at home: Yes Do you feel safe in your relationship?: Yes Meds Allergies and Home Medications Allergies Allergy/AdvReac Type Severity Reaction Status Date / Time aspirin (From Fiorinal) Allergy Unknown Unknown Verified 12/14/24 07:12 butalbital (From Fiorinal) Allergy Unknown Unknown Verified 12/14/24 07:12 caffeine (From Fiorinal) Allergy Unknown Unknown Verified 12/14/24 07:12 Sulfa (Sulfonamide Allergy Unknown Skin Rash Verified 12/14/24 07:12 Antibiotics) Home Medications ?Medication ?Instructions ?Recorded ?Confirmed ?Type calcium carbonate (Calcium 600) 600 mg PO BID 02/22/14 12/14/24 History cetirizine 10 mg tablet (Zyrtec) 10 mg PO DAILY 02/22/14 12/14/24 History glucosamine [id number] 2 cap PO DAILY 02/22/14 12/14/24 History thuan 1,500 mg-400 unit-100 mg tablet (Osteo Bi-Flex (5-Loxin)) omega-3 fatty acids-fish oil 300 1 ea PO DAILY 02/22/14 12/14/24 History mg-500 mg capsule (Fish Oil) vitamin E 670 mg (1,000 unit) 1,000 tab PO DAILY 02/22/14 12/14/24 History capsule alendronate 70 mg tablet 70 mg PO QWEEK 11/03/24 12/14/24 History dapagliflozin propanediol 5 mg 5 mg PO DAILY 11/03/24 12/14/24 History tablet (Farxiga) furosemide 20 mg tablet 20 mg PO DAILY 11/03/24 12/14/24 History levothyroxine 88 mcg capsule 88 mcg PO DAILY 11/03/24 12/14/24 History multivitamin 1 tab PO DAILY 11/03/24 12/14/24 History spironolactone 50 mg tablet 50 mg PO DAILY 11/03/24 12/14/24 History turmeric root extract 300 mg 300 mg PO DAILY 11/09/24 12/14/24 History capsule (Curica Turmeric) phentermine 15 mg capsule 15 mg PO DAILY 12/10/24 12/10/24 History Exam Const General: cooperative, healthy appearing and not in acute distress Neck Neck: normal visual inspection, no lymphadenopathy and supple Resp Effort & Inspection: normal respiratory effort Auscultation: clear to auscultation bilaterally Cardio Jugular venous pressure: no JVD Rate: regular rate Rhythm: regular rhythm Heart Sounds: S1 normal and S2 normal GI Inspection: normal to inspection Palpation: soft, no guarding, no hernias and nontender Percussion: normal to percussion Auscultation: normal bowel sounds Neuro General: patient alert, patient awake and patient oriented x3 Psych Appearance: grossly normal
--- NOTE | 2024-12-13 09:42 | W.PM.DSUDISC ---
Date of service: 12/14/24 Discharge Plan Disposition Patient Disposition: Home Condition: Good Discharge Details Reason For Visit: screening colonoscopy Attending Provider: Jose Angel Giordano Primary Care Provider: Lisa Figueredo Home Meds and New Rx's Prescriptions: Continued Curica Turmeric 300 mg capsule 300 mg PO DAILY alendronate 70 mg tablet 70 mg PO QWEEK dapagliflozin propanediol [Farxiga] 5 mg tablet 5 mg PO DAILY furosemide 20 mg tablet 20 mg PO DAILY levothyroxine 88 mcg capsule 88 mcg PO DAILY multivitamin Tablet 1 tab PO DAILY spironolactone 50 mg tablet 50 mg PO DAILY vitamin E 1,000 UNIT capsule 1,000 tab PO DAILY calcium carbonate [Calcium 600] 600 MG tablet 600 mg PO BID Fish Oil 1 EACH capsule 1 ea PO DAILY [id number] serr [Osteo Bi-Flex (5-Loxin)] 1 EACH tablet 2 cap PO DAILY cetirizine [Zyrtec] 10 MG tablet 10 mg PO DAILY phentermine 15 mg capsule 15 mg PO DAILY Patient Comments: TAKE 1 CAPSULE BY MOUTH ONCE DAILY Discharge Instructions Instructions: Colon polyps, Diverticulosis Additional Instructions: Maritza, is very nice meeting you today, and I hope you feel well after the colonoscopy. Things went very smoothly. Your prep was very good, and I could see everything fine. I did find to remove a single polyp in your rectum today. It was small, none of the features appear particularly worrisome to the naked eye. I will send this off to the pathologist for their review, since polyps, different varieties, we use that information to help guide recommendations for future colonoscopies. You did have a little bit of inflammation in your rectum today, that I suspect is secondary to the bowel prep. This may account for some of the bleeding that you notice from time to time in your stools. Incidentally, you also have some diverticulosis, which can manifest as bleeding as well. Diverticula are little weak spots in the muscular layer of the colon wall. These can get impacted with stool that then cause irritation and inflammation. On occasion, some patients experience sharp pain on the left lower side of their abdomen as a result of this inflammation. I will attach a little bit of information here about typical approaches to diverticular management. Once I have the results from the polyp report, my office will be in touch. If you need anything in the meantime, please do not hesitate to call. 1. If tolerated, consume a soft, low fiber diet for 1-2 days. 2. Do not drive, drink alcohol, operate machinery, make critical decisions, or do activities that require coordination or balance for 24 hours. 3. Because air was put into your colon during the procedure, expelling air from your rectum (passing gas or farting) is normal. 4. You may not have a bowel movement for 1-3 days because of the colonoscopy prep. This is normal. 5. Go directly to the emergency room if you notice any of the following: Develop chills (warm to touch), or if you have a thermometer and your temperature is above 101 Difficulty breathing or difficultly swallowing Persistent vomiting Severe abdominal pain, other than gas cramps Severe chest pain Black, tarry stools Any bleeding ? exceeding one tablespoon 6. Call your physician if the site where your intravenous was started becomes red, swollen, painful, and warm to touch. 7. Your physician has reviewed your pre-procedure medications. Please continue to take those medications as previously ordered. You will be given specific information/education regarding any changes to your medications before leaving. Activity:: Activity as Tolerated Diet:: As Tolerated Discharge Orders Discharge Orders: Discharge Order (Routine); Ordered 12/13/24 Ordered By: Jose Angel Giordano DS: Diagnosis Discharge Diagnosis (1) Encounter for screening colonoscopy: Status: Acute Asessment and Plan: Follow-up on polypectomy results
--- NOTE | 2024-12-13 09:44 | COLE_ITS ---
Date of service: 12/14/24 Time of Service: 08:53 Colonoscopy Report Date of procedure: 12/14/24 Pre-op diagnosis general: screening colonoscopy Post-op diagnosis procedure note: other (Rectal polyp, diverticulosis) Procedure: colonoscopy with polypectomy Surgeon: Jose Angel Giordano Anesthesia Type: General:No Airway Estimated blood loss (mL): 5 Pathology: other (0.5 cm flat rectal polyp) Complications: None Disposition: same day Indications: 73-year-old woman is due for her next colonoscopy. Her last 1 was more than 10 years ago. Reportedly had some hyperplastic polyps. There is no family history of colon cancer. She does note that she occasionally will see a streak of blood in the toilet but assumes is from hemorrhoids. Prep: Miralax/Dulcolax Procedure Start Time: 08:23 Procedure End Time: 08:40 Retraction Time: 8 Findings: 0.25 cm flat rectal polyp, sigmoid diverticulosis Procedure Description: After the induction of anesthesia, and with the patient in left lateral decubitus position, I began by performing an external anorectal exam.? Perineum and skin were normal, as was the anal verge.? There was no evidence of external hemorrhoids.? Next, I performed a digital rectal exam.? I did not appreciate any abnormal findings.? Next, I advanced a colonoscope into the rectal vault.? I performed retroflexion.? There was a small amount of patchy rectal inflammation that appeared most consistent with irritation from the bowel prep. There was a 0.25 cm flat polyp in the rectum that was removed with cold forceps with minimal bleeding.? Using irrigation, I then advanced the colonoscope beyond the rectal folds and into the sigmoid colon before advancing towards the cecum.? The quality of the prep was adequate.? The scope was noted to be in the cecum by identification of the ileocecal valve and appendiceal orifice.? I then began withdrawing the colonoscope using repeated irrigation as necessary for full evaluation of the colonic mucosa. There is extensive sigmoid diverticulosis. Once the scope was withdrawn to the level of the rectum, great care was taken to examine portions of the rectal folds.? Finally, the scope was withdrawn and the patient was brought to the same-day surgery recovery unit as the anesthetic wore off. ?The findings and instructions were shared with the patient prior to discharge. [employer] Bowel [employer] Bowel [employer] Right Colon: 2 Left Colon: 3 Transverse Colon: 3 Total Score: 8
--- NOTE | 2024-12-13 17:49 | W.ANESPRE ---
General Info Date of Service Date Performed: 12/14/24 Height: 5 ft 1 in Weight: 92.533 kg Body Mass Index (BMI): 38.5 Surgical Procedure: Operation Date: 12/14/24 08:20 Proposed Procedure Side Surgeon melinda Giordano MD Meds Allergies and Home Medications Allergies Allergy/AdvReac Type Severity Reaction Status Date / Time aspirin (From Fiorinal) Allergy Unknown Unknown Verified 12/14/24 07:12 butalbital (From Fiorinal) Allergy Unknown Unknown Verified 12/14/24 07:12 caffeine (From Fiorinal) Allergy Unknown Unknown Verified 12/14/24 07:12 Sulfa (Sulfonamide Allergy Unknown Skin Rash Verified 12/14/24 07:12 Antibiotics) Home Medication ?Medication ?Instructions ?Recorded calcium carbonate (Calcium 600) 600 mg PO BID 02/22/14 cetirizine 10 mg tablet (Zyrtec) 10 mg PO DAILY 02/22/14 glucosamine [id number] 2 cap PO DAILY 02/22/14 thuan 1,500 mg-400 unit-100 mg tablet (Osteo Bi-Flex (5-Loxin)) omega-3 fatty acids-fish oil 300 1 ea PO DAILY 02/22/14 mg-500 mg capsule (Fish Oil) vitamin E 670 mg (1,000 unit) 1,000 tab PO DAILY 02/22/14 capsule alendronate 70 mg tablet 70 mg PO QWEEK 11/03/24 dapagliflozin propanediol 5 mg 5 mg PO DAILY 11/03/24 tablet (Farxiga) furosemide 20 mg tablet 20 mg PO DAILY 11/03/24 levothyroxine 88 mcg capsule 88 mcg PO DAILY 11/03/24 multivitamin 1 tab PO DAILY 11/03/24 spironolactone 50 mg tablet 50 mg PO DAILY 11/03/24 turmeric root extract 300 mg 300 mg PO DAILY 11/09/24 capsule (Curica Turmeric) phentermine 15 mg capsule 15 mg PO DAILY 12/10/24 Current Visit Medications: Current Medications Generic Name Dose Route Start Last Admin Trade Name Freq PRN Reason Stop Dose Admin Ringer's Solution 1,000 mls @ 80 mls/hr 12/14/24 06:00 IV 12/14/24 23:59 INFUSION DAMIAN IV Miscellaneous Supplies 1 each 12/14/24 06:00 Iv Access IV 12/14/24 23:59 DIRECTED DAMIAN Ondansetron HCl 4 mg 12/13/24 09:45 Ondansetron 4 Mg/2 Ml Vial IVP 01/12/25 09:44 Q4H PRN PRN Nausea / Vomiting Sodium Chloride 0 ml 12/14/24 06:00 Normal Saline Flush 10 Ml Syr IV 12/14/24 23:59 PRN PRN Sodium Chloride 0 ml 12/14/24 06:00 Normal Saline 10 Ml Vial IJ 12/14/24 23:59 DIRECTED PRN Sterile Water 0 ml 12/14/24 06:00 Water,Injection,Sterile 10 Ml Vial IJ 12/14/24 23:59 DIRECTED PRN PFSH Active Problems Active Problems: Problem Status Onset Code Encounter for screening colonoscopy Acute Z12.11 Atypical nevus Acute D22.9 Medical History Medical History Obesity Irritable bowel Mitral valve prolapse GERD (gastroesophageal reflux disease) Hypothyroidism Colon polyp Rhinitis, allergic Fatty liver Chronic pain Surgical History Surgical History Ligation of fallopian tube Rectocele, Paravaginal repair Oophrectomy, Both Cystocele, Paravaginal repair Colonoscopy - IV Sedation Tobacco Smoking/Tobacco Use Status: Never Passive smoking exposure: Yes Alcohol Alcohol Intake: current Alcohol intake frequency: holidays/special occasions only Substance Use Substance use: Never Vital Signs and Lab Results Vital Signs Most Recent Vital Signs in EMR: Temp Pulse Resp BP Pulse Ox 36.4 C L 84 19 134/79 97 12/14/24 07:02 12/14/24 07:02 12/14/24 07:02 12/14/24 07:02 12/14/24 07:02 Lab Results Blood Type / Crossmatch: No Data to Display Complete Blood Count: No Data to Display Complete Metabolic Panel: No Data to Display Liver Function Panel: No Data to Display Coagulation Panel: No Data to Display Cardiac Panel: No Data to Display Arterial Blood Gas: No Data to Display Venous Blood Gas: No Data to Display Pancreas Panel: No Data to Display Thyroid Panel: No Data to Display Infectious Disease: No Data to Display Blood Cultures: No Data to Display Toxicology Panel: No Data to Display Anesthesia Assessment and Plan Anesthesia History Personal History: No History of Anesthesia Complications Family History: No Family History of Anesthesia Complications Exercise Tolerance Exercise Tolerance: Metabolic Equivalents>4 Cardiac & Pulmonary Exam Cardiac Exam: Normal S1/S2 Heart Sounds Pulmonary Exam: Clear Bilateral Breath Sounds Implantable Cardiac Device Does patient have a Pacemaker or an ICD?: No Airway Exam Known Difficult Airway: No Mallampati Class: 3 Mouth Opening: Normal (> 3cm) Thyromental Distance: Less than 3 cm Neck Range of Motion: Full ROM Neck Circumference: Normal Teeth Condition: Normal Dentition ASA Classification ASA Score: ASA 2 Emergency Case?: No NPO Status NPO Status: NPO Clears >2 hours, Solids >8 hours Anesthesia Plan Resuscitation Status: Full Code Anesthesia Technique: General Anesthesia Airway Planned: Natural Airway Monitors Used: Standard Monitors Preoperative Comments:: 74 yo female for colo. Sig PMHx: MVP, GERD, hypothyroid, DM, never smoker. elevated BMI (phentermine) ECHO: LVEF 53%. Appropriately NPO. Denies GERD.
[2024-12-14 07:02] VITALS: BP 134/79; PULSE 84; RESP 19; TEMP 36.4; O2SAT 97
[2024-12-14] MEDS: Lactated Ringers 1,000 ML 80 ML IV (07:25)
[2024-12-14 07:43] VITALS: BMI 38.5
--- NOTE | 2024-12-14 08:25 | BOWEL_PTH ---
PATIENT: Maritza Lemus LOC: [facility] U#:[id number] AGE/SX: 74/F ROOM: RE12/14/[address]: Jose Angel Giordano MD : 1950 BED: DIS: 12/14/2024 SPEC #: [id number] RECD: 12/14/24 12:10 STATUS: DARCIE REQ #: [id number] KIM: 12/14/24 08:[address]: Jose Angel Giordano DEPT: Surgical Specimen RECD BY: Sandy Jimenez ENTERED: 12/14/24 12:10 SP TYPE: Bowel OTHR DR: Lisa Figueredo Tissues: 1 - BIOPSY BOWEL Procedures: GROSS AND MICRO LEVEL 4 Comments: [id number]
[2024-12-14 08:45] VITALS: BP 111/68; PULSE 78; RESP 16; TEMP 36.3; O2SAT 97
--- NOTE | 2024-12-14 08:59 | W.ANESPOSTOP ---
Postoperative Evaluation Date, Time and Location Date Performed: 12/14/24 Time Performed: 08:59 Patient Location: Day Surgery Unit Vital Signs Most Recent Imported Vital Signs: Most Recent Vital Signs Temp Pulse Resp BP Pulse Ox 36.3 C L 78 16 111/68 97 12/14/24 08:45 12/14/24 08:45 12/14/24 08:45 12/14/24 08:45 12/14/24 08:45 Pain Score Most Recent Pain Score: Most Recent Pain Score Pain Level 0 12/14/24 08:45 Assessment Mental Status: Awake (Alert & Oriented to Patient Baseline) Airway and Respiratory Function: Patent airway with normal (patient baseline) respiratory exam Cardiovascular Function: Hemodynamically Stable Hydration Status: Adequately Hydrated Nausea & Vomiting: No Nausea or Vomiting Pain: Pt. Denies Any Pain Peripheral Nerve Block: Patient did not receive a nerve block
[2024-12-14 09:13] VITALS: BP 112/65; PULSE 68; RESP 18; TEMP 36.2; O2SAT 97
== END 2024-12-14 09:35 | disposition home or self-care (01) ==
LOC: SUR 06:39
PROVIDERS: PCP Family Medicine; Visit Provider Surgery
PROC: 0DJD8ZZ Inspection of Lower Intestinal Tract, Via Natural or Artificial Opening Endoscopic (ICD-10-PCS; CPT 45378; principal; 2024-12-14 08:15)
DX: Z12.11 Encounter for screening for malignant neoplasm of colon (principal); K62.1 Rectal polyp; K57.30 Diverticulosis of large intestine without perforation or abscess without bleeding
CPT/HCPCS: 45380; 88305; J2704

== ENCOUNTER 2025-02-01 13:47 | Outpatient (REF) | payer MEDICARE, SELFPAY ==
[2025-02-01 19:45] LABS: Anion Gap 11.1 mmol/L (3-11); BUN 12 mg/dL (7-18); CO2 27.9 mmol/L (21.0-32.0); CREATININE 0.8 mg/dL (0.55-1.02); Calcium 8.9 mg/dL (8.5-10.1); Chloride 101 mmol/L (98-107); Estimated GFR 77.75 (mL/min/1.73m2); Glucose 93 mg/dL (74-106); Potassium 3.7 mmol/L (3.5-5.1); Sodium 140 mmol/L (136-145)
== END 2025-02-01 13:48 | disposition home or self-care (01) ==
LOC: NCHCN 13:47
PROVIDERS: PCP Family Medicine; Visit Provider Family Medicine
DX: L03.115 Cellulitis of right lower limb (principal)
CPT/HCPCS: 80048